=== PATIENT | female | born 1965 | race Caucasian/White ===

== ENCOUNTER → 2024-06-20 13:22 | Outpatient (REF) | payer BC, SELFPAY | LOC: HWWDC 13:22 | PROVIDERS: ATTENDING PHYSICIAN Obstetrics & Gynecology; FAMILY PHYSICIAN Physician Assistant | DX: Z12.31 Encounter for screening mammogram for malignant neoplasm of breast (principal) | CPT/HCPCS: 77063; 77067 ==

== ENCOUNTER → 2025-07-31 07:57 | Outpatient (REF) | payer BC, SELFPAY | LOC: HWWDC 07:57 | PROVIDERS: ATTENDING PHYSICIAN Hospitalist; FAMILY PHYSICIAN Physician Assistant; REFERRING PHYSICIAN Obstetrics & Gynecology | DX: Z12.31 Encounter for screening mammogram for malignant neoplasm of breast (principal); M85.89 Other specified disorders of bone density and structure, multiple sites | CPT/HCPCS: 77063; 77067; 77080 ==

== ENCOUNTER 2025-10-22 06:44 | Emergency (ER) | payer BC, SELFPAY ==
[2025-10-22] VITALS (7 sets, daily range): BP systolic 114–142; BP diastolic 56–126; BMI 26.8
[2025-10-22 07:00] LABS: Hematocrit 36.7 % (37.0-47.0); Hemoglobin 12.9 g/dL (12.0-16.0); Mean Corp Hgb Conc. 35.1 g/dL (33.0-37.0); Mean Corpuscular Volume 88.9 fL (81.0-99.0); Nucleated Red Blood Cells % 0 %; Platelet Count 197 10^3/uL (130-400); Red Cell Dist. Width 11.6 % (11.5-14.5)
--- NOTE | 2025-10-22 07:07 | ED.GENMED ---
History of Present Illness
General
Chief Complaint: Chest Pain
Source: patient
Exam Limitations: none
Time Seen by Provider: 10/22/25 06:51
Nursing documentation reviewed up to this point in time: agreed with
History of Present Illness
History of Present Illness:
60-year-old female presenting to the emergency department today with concerns of a central chest pressure with some radiation to her right jaw into her back started roughly an hour and a half prior to arrival to the emergency department and woke her
from her sleep. Vital sweaty at the onset but denies any shortness of breath associated. She woke her neighbor and then called EMS. She did receive nitro and aspirin and route did have some nausea at that point and also received Zofran. Symptoms
are significantly improved at this point and is now close to asymptomatic. Does have very minimal lower chest achiness at this point. She denies similar symptoms in the past but has had indigestion in the past as well as rheumatoid arthritis where
she has had achiness and pains but this feels somewhat similar to that. Denies any recent trauma surgery immobilization, leg swelling, estrogen product usage. Denies any smoking history.
Review of Systems
Review of Systems
Allergies reviewed?: Yes
All Other Systems: ROS reviewed and negative except as documented in HPI and ROS
Phy Exam
Physical Exam
Physical Exam:
GENERAL: Alert , in no apparent distress
EYE: pupils equal and reactive
NECK: Supple, no significant adenopathy.
ENT: o/p clr, mmm.
CARDIAC: Regular rate and rhythm .
LUNGS: Clear breath sounds bilaterally, no acute respiratory distress, no wheezes/rales/rhonchi
ABDOMEN: Soft, without focal tenderness, no r/g, no cvat
NEUROLOGICAL: Alert and oriented, no focal neuro deficits
SKIN: Warm and dry, skin intact.
MUSCULOSKELETAL: No edema, well perfused.
PSYCH: Normal and appropriate interaction.
Scores
Heart Score for Chest Pain Patients
STEMI patient?: No
History: Slightly or Non-Suspicious
ECG: Normal
Age: >45 - <65 years
Risk Factors: No Risk Factors
Troponin: </= Normal Limit
Heart Score for Chest Pain Patients: 1
Heart Score Risk: 2.5% MACE over next 6 weeks
Course
Orders/Labs/Results
Orders:
Orders
10/22/25 06:47
Electrocardiogram (*1) Urgent
Reason for Study: Chest Pain
Cardiac Monitoring- Treatment ONCE
EKG- Treatment ONCE
IV Insert/Care/Rem.- Treatment PRN
Pulse Ox/spot Check [RESP] Urgent
Quantity: 1
Special Instructions: ON ROOM AIR
10/22/25 06:48
Complete Blood Count/With Diff Urgent
Comprehensive Metabolic Panel Urgent
Troponin I Urgent
10/22/25 07:06
Chest [CR Chest - 2 Views ] Urgent
Comment:
Reason For Exam: cp
10/22/25 09:37
Electrocardiogram (*1) Urgent
Reason for Study: Chest Pain
EKG- Treatment ONCE
10/22/25 10:30
Troponin I Urgent
10/22/25 10:46
Mag Hydrox/Al Hydrox/Simeth [Maalox] 30 ml Phenobarb/Hyoscy/Atropine/Scop [] 10 ml PO NOW
10/22/25 11:02
Mag Hydrox/Al Hydrox/Simeth [Maalox] 30 ml .ROUTE .STK-MED ONE
Phenobarb/Hyoscy/Atropine/Scop [] 10 ml .ROUTE .STK-MED ONE
Abnormal Lab Results
10/22/25
06:48
WBC 4.4 L 10^3/uL
(4.8-10.8)
RBC 4.13 L 10^6/uL
(4.20-5.40)
Hct 36.7 L %
(37.0-47.0)
MCH 31.2 H pg
(27.0-31.0)
MPV 10.9 H fL
(7.4-10.4)
Glucose 107 H mg/dl
(70-99)
10/22/25 06:48
10/22/25 06:48
Vital Signs
Initial and Last Documented VS:
Initial Vital Signs
BP
132/81
10/22/25 06:46
Last Documented Vital Signs
Temp Pulse Resp BP Pulse Ox
97.7 F 62 12 114/72 96
10/22/25 06:51 10/22/25 11:00 10/22/25 11:00 10/22/25 11:00 10/22/25 07:10
MDM/Problems Addressed
MDM/Problems Addressed:
60-year-old female presenting to the emergency department with concerns of lower chest pressure with some radiation to her back and right jaw upon awakening this morning. EMS gave her aspirin as well as nitro with good improvement of symptoms. She
did have some nausea at the time also received Zofran. On arrival vital signs are normal patient no distress EKG without signs of ischemia or arrhythmia. Patient had repeated troponin and EKG at the 3-hour sreedhar also negative. Her very minor
epigastric discomfort was fully resolved after green grabber. At this point patient appears stable for outpatient management and discharge. Return precautions given.
*Pulse Oximetry
SaO2: 96
Oxygen Mode of Delivery: Room air
Patient hypoxic: no (96)
*Critical Care Note
Total Time (30-74mins, 75-104mins- exclusive of procedures): Not Applicable
ED Attending Note
-
Portions of this chart may have been created with voice recognition software.� Occasional wrong word or��sound alike� substitutions may have occurred due to the inherent limitations of voice recognition software.
Discharge Plan
Departure
Patient Disposition: Home (Routine Discharge)
Date of Disposition: 10/22/25
Time of Disposition: 11:59
Patient with high blood pressure during this ER visit?: No
Condition: Good
Covid-19: Not Applicable
Discharge Problem:
Chest pain
Instructions: Chest Pain DCA Follow Up
Prescriptions:
No Action
simvastatin 10 mg Tablet
10 mg PO DAILY
levothyroxine 88 mcg Tablet
88 mcg PO DAILY
folic acid 1 mg Tablet
3 mg PO DAILY
Referrals:
Ame Lyn PA-C [Family Provider, Internal Medicine]
Activity Restrictions/Additional Instructions:
You came to the emergency department today with concerns of epigastric pain chest pain. Here you had reassuring assessment. Please follow closely with cardiology. Return for any worsening, new or concerning symptoms.
Interventions
Interventions:
*General Assessment Last Done: 10/22/25 06:59
*Neglect/Abuse Screening Last Done: 10/22/25 06:56
*ED COVID-19 Vaccine History Last Done: 10/22/25 06:59
*ED Influenza Vaccine History Last Done: 10/22/25 06:59
[facility] Fall Risk Assessment Tool Last Done: 10/22/25 06:57
ED- Cardiac Assessment Last Done: 10/22/25 07:00
Discharge Date and Time
Print Language: [id number]
[2025-10-22 07:22] LABS: Troponin I < 0.012 ng/ml
[2025-10-22 07:35] LABS: ALT (SGPT) 16 U/L (0-35); AST (SGOT) 22 U/L (14-36); Albumin 4.4 g/dl (3.5-5.0); Alkaline Phosphatase 93 U/L (38-126); Blood Urea Nitrogen 16 mg/dl (7-17); Calcium 9.9 mg/dl (8.4-10.2); Carbon Dioxide 25 mmol/L (22-30); Chloride 106 mmol/L (98-107); Estimated Creatinine Clearance 79 ml/min; Glucose 107 mg/dl (70-99); Potassium 3.7 mmol/L (3.5-5.1); Sodium 139 mmol/L (135-145); Total Protein 7.0 g/dl (6.3-8.2); eGFR > 60.00
[2025-10-22] MEDS: MAALOX 40 PO (11:04)
[2025-10-22 11:16] LABS: Troponin I < 0.012 ng/ml
== END 2025-10-22 12:13 | disposition home or self-care (01) ==
LOC: EMR 06:44
PROVIDERS: Physician Assistant; EMERGENCY PHYSICIAN Emergency Medicine; FAMILY PHYSICIAN Physician Assistant
DX: R07.9 Chest pain, unspecified (principal); M06.9 Rheumatoid arthritis, unspecified
CPT/HCPCS: 99284; 71046; 80053; 84484; 85025; 93005